=== PATIENT | female | born 1975 | race Caucasian/White ===

== ENCOUNTER 2019-03-05 21:53 | Emergency (ER) | payer OTHER, MEDICAID ==
[~2019-03-05] VITALS: Ht 160 cm; Wt 61.0 kg
[2019-03-05] MEDS ORDERED: SODIUM CHLORIDE 0.9% 1,000 ML IV ONE (22:36)
[2019-03-06] MEDS ORDERED: HALOPERIDOL LACTATE 5MG/ML VIAL IM ONE ×2 (01:00→02:15)
[2019-03-06] MEDS ORDERED: LORAZEPAM 2MG/ML CPJ IM ONE (01:00)
[2019-03-06 06:30] VITALS: BP 92/60
== END 2019-03-06 09:25 | disposition home or self-care (01) ==
LOC: ER 21:53
DX: F10.129 Alcohol abuse with intoxication, unspecified (principal); Y90.0 Blood alcohol level of less than 20 mg/100 ml
CPT/HCPCS: 96372; 99283; J1630; J2060; J7030; Z7610